=== PATIENT | male | born 1950 | race Caucasian/White ===

== ENCOUNTER 2018-06-19 10:06 | Emergency (ER) | payer OTHER ==
[~2018-06-19] VITALS: Ht 180.3 cm; Wt 93.4 kg
[2018-06-19] MEDS ORDERED: LIPITOR20 MG PO (10:13)
[2018-06-19] MEDS ORDERED: LISINOPRIL10 MG PO (10:13)
[2018-06-19] MEDS ORDERED: PLAVIX75 MG PO (10:14)
[2018-06-19] MEDS ORDERED: TOPROL XL50 M1 PO (10:15)
[2018-06-19] MEDS ORDERED: INTESTINEX680 M1 PO (15:56)
== END 2018-06-19 17:07 | disposition home or self-care (01) ==
LOC: ER 10:06
DX: K52.89 Other specified noninfective gastroenteritis and colitis (principal); K29.60 Other gastritis without bleeding

== ENCOUNTER 2022-04-18 12:04 | Outpatient (CLI) | payer OTHER ==
[~2022-04-18 12:04] MED LIST: INTESTINEX680 M1 PO; LIPITOR20 MG PO; LISINOPRIL10 MG PO; PLAVIX75 MG PO; TOPROL XL50 M1 PO
== END 2022-04-18 12:14 | disposition home or self-care (01) ==
LOC: PPH VACUNA 12:04
PROVIDERS: ATTEND Emergency Medicine Pediatric Emergency Medicine
DX: Z23 Encounter for immunization (principal)

== ENCOUNTER 2022-07-07 17:40 | Emergency (ER) | payer OTHER ==
[~2022-07-07] VITALS: Ht 180.3 cm; Wt 90.7 kg
[2022-07-07] MEDS ORDERED: NORVASC10 MG (17:57)
[2022-07-07] MEDS ORDERED: ST. JOSEPH ASPI81 M3 (17:59)
== END 2022-07-07 19:47 | disposition designated cancer center or children's hospital (05) ==
LOC: ER 17:40
DX: I63.9 Cerebral infarction, unspecified (principal); G81.94 Hemiplegia, unspecified affecting left nondominant side; Z20.822 Contact with and (suspected) exposure to COVID-19; Z88.6 Allergy status to analgesic agent; R07.9 Chest pain, unspecified

== ENCOUNTER 2024-02-17 10:47 | Emergency (ER) | payer OTHER ==
[~2024-02-17] VITALS: Ht 180.3 cm; Wt 88.5 kg
[~2024-02-17 10:47] MED LIST changes: +NORVASC10 MG; +ST. JOSEPH ASPI81 M3; +ZANAFLEX2 MG PO
[2024-02-17] MEDS ORDERED: FAMOTIDINE/PF 20 MG/2 ML VIAL IV PUSH STA (14:48)
[2024-02-17 15:41] LABS: HEMOGLOBIN 15.1 g/dL (13-16.00); MEAN CELL VOLUME 86.1 fL (80.0-100.00); MEAN CORPUSCULAR HEMOGLOBIN 29.6 pg (27.00-32.0); MEAN CORPUSCULAR HGB CONC 34.3 g/dl (32.0-36.0); PLATELET COUNT 117 K/uL (150-450); RED BLOOD COUNT 5.12 M/uL (4.00-6.00); RED CELL DISTRIBUTION WIDTH 13.3 % (11.5-14.5)
== END 2024-02-17 16:44 | disposition home or self-care (01) ==
LOC: ER 10:48
DX: A90 Dengue fever [classical dengue] (principal); K29.70 Gastritis, unspecified, without bleeding; Z88.8 Allergy status to other drugs, medicaments and biological substances; I11.9 Hypertensive heart disease without heart failure; Z98.61 Coronary angioplasty status; Z20.822 Contact with and (suspected) exposure to COVID-19
CPT/HCPCS: 36415; 96365; 99282; J3490